=== PATIENT | male | born 1960 | race Caucasian/White ===

== ENCOUNTER 2018-06-07 16:41 | Emergency (ER) | payer BC ==
[~2018-06-07] VITALS: Ht 182.9 cm; Wt 104.0 kg
--- NOTE | 2018-06-07 16:46 | NUR ---
Spoke with Dr Tong about the patient. Dr Tong states he will put in orders.
[2018-06-07 17:36] LABS: BASOPHILS % (AUTO) 0.2 % (0-1); EOSINOPHILS # (AUTO) 0.1 X10'3 (0-0.9); HEMATOCRIT 43.9 % (42.0-52.0); HEMOGLOBIN 15.3 g/dl (14.0-17.9); LYMPHOCYTES # (AUTO) 1.1 X10'3 (1.1-4.8); MEAN CORPUSCULAR HEMOGLOBIN 34.5 PG (27.0-31.0); MEAN CORPUSCULAR HGB CONC 34.8 g/dL (33.0-36.5); MEAN CORPUSCULAR VOLUME 99.1 FL (78-98); MEAN PLATELET VOLUME 9.9 FL (7.4-10.4); MONOCYTES # (AUTO) 0.5 X10'3 (0-0.9); MONOCYTES % (AUTO) 9.4 % (2-12); NEUTROPHILS # (AUTO) 3.9 X10'3 (1.8-7.7); NEUTROPHILS % (AUTO) 69.4 % (42-75); PLATELET COUNT 66 X10'3 (140-440); RED BLOOD COUNT 4.43 X10'6 (4.70-6.10); WHITE BLOOD COUNT 5.7 X10'3 (4.5-11.0)
[2018-06-07 17:52] LABS: ALANINE AMINOTRANSFERASE 92 U/L (12-78); ALBUMIN/GLOBULIN RATIO 0.5 (1.1-1.5); ALKALINE PHOSPHATASE 174 IU/L (46-116); ANION GAP 13 (8-16); ASPARTATE AMINO TRANSFERASE 67 U/L (10-37); BILIRUBIN,TOTAL 1.9 MG/DL (0.1-1.0); BLOOD UREA NITROGEN 19 MG/DL (7-18); BUN/CREATININE RATIO 20.2 (5.4-32.0); CALCIUM 9.2 MG/DL (8.5-10.1); CHLORIDE 100 MMOL/L (99-107); CREATININE 0.94 MG/DL (0.60-1.10); GLUCOSE 201 MG/DL (70-104); POTASSIUM 3.4 MMOL/L (3.5-5.1); SODIUM 137 MMOL/L (135-145); TOTAL PROTEIN 8.7 G/DL (6.4-8.2); eGFR 82 ML/MIN
[2018-06-07 17:53] LABS: INR 1.2 INR; PROTHROMBIN TIME 12.4 SECONDS (9.0-12.0)
[2018-06-07 17:54] LABS: LACTIC SEPSIS 1.7 MMOL/L (0.4-2.0); PARTIAL THROMBOPLASTIN TIME 29 SECONDS (22-32)
[2018-06-07 17:55] LABS: TROPONIN I < 0.04 NG/ML (0.0-0.05)
[2018-06-07 18:08] LABS: ETHANOL < 0.010 GM/DL (0.0-0.010)
[2018-06-07 18:49] LABS: CLARITY,URINE CLEAR (Clear); COLOR,URINE YELLOW (Yellow); GLUCOSE, URINE 100 mg/dl (Neg); KETONES,URINE NEGATIVE (Neg); LEUKOCYTE ESTERASE ,URINE NEGATIVE (Neg); NITRITES, URINE NEGATIVE (Neg); OCCULT BLOOD,URINE NEGATIVE (Neg); PROTEIN,URINE NEGATIVE (Neg); UA COLLECTION TYPE CLN CATCH MIDSTREAM; UROBILINOGEN,URINE 0.2 E.U/dL (0.2-1.0)
[2018-06-07] MEDS ORDERED: lactulose 20gm/30ml cup PO ONE (18:55)
[2018-06-07 19:02] LABS: URINE AMPHETAMINE SCREEN NEGATIVE (Neg); URINE BARBITUATE SCREEN NEGATIVE (Neg); URINE BENZODIAZEPINES SCREEN NEGATIVE (Neg); URINE CANNABINOID SCREEN NEGATIVE (Neg); URINE COCAINE SCREEN NEGATIVE (Neg); URINE METHADONE SCREEN NEGATIVE (Neg); URINE OPIATE SCREEN NEGATIVE (Neg); URINE PHENCYCLIDINE SCREEN NEGATIVE (Neg)
[2018-06-07 19:09] VITALS: BP 139/81
[2018-06-07] MEDS ORDERED: LACT10SO PO (19:48)
== END 2018-06-07 20:03 | disposition home or self-care (01) ==
LOC: ER 16:41
DX: K72.90 Hepatic failure, unspecified without coma (principal); E11.9 Type 2 diabetes mellitus without complications; Z88.8 Allergy status to other drugs, medicaments and biological substances
CPT/HCPCS: 36415; 70450; 71045; 80053; 80305; 80320; 81003; 82140; 82948; 83605; 84484; 85025; 85610; 85730; 87040; 93005; 99284

== ENCOUNTER 2024-10-12 10:28 | Outpatient (CLI) | payer MEDICARE, OTHER ==
[~2024-10-12 10:28] MED LIST: LACT-373 PO
--- NOTE | 2024-10-12 11:53 | RADIOLOGY REPORT ---
CLINICAL INDICATION: LEFT SHOULDER PAIN TECHNIQUE: 3 radiographic views of the left shoulder were obtained. Comparison: None FINDINGS/IMPRESSION: There is no evidence of acute fracture or dislocation. Moderate osteoarthrosis of the left glenohumeral joint.
== END 2024-10-12 23:59 | disposition home or self-care (01) ==
LOC: RAD 10:28
PROVIDERS: ATTEND Family Medicine
DX: M19.011 Primary osteoarthritis, right shoulder (principal); M25.512 Pain in left shoulder
CPT/HCPCS: 73030